=== PATIENT | male | born 1950 | race Caucasian/White ===

== ENCOUNTER 2018-04-08 05:46 | Inpatient (IN) | payer MEDICARE ==
[~2018-04-08] VITALS: Ht 177.8 cm; Wt 93.6 kg
[~2018-04-08 05:46] MED LIST: CETI10TA24 PO; CIPR500T3 PO; FINA5TAB4 PO; GLUC1CAP18 PO; MAGN400T7 PO; TAMS0.4C2 PO; TURM500C4 PO
[2018-04-08] MEDS ORDERED: EPINEPHRINE 1 MG/ML, 1ML ONE (06:56)
[2018-04-08] MEDS ORDERED: INDIGO CARMINE 0.8%, 5ML ONE (06:56)
[2018-04-08] MEDS ORDERED: BUPIVACAINE/PF 0.25% ONE (06:56)
[2018-04-08] MEDS ORDERED: THROMBIN 5,000 UNIT VIAL TP ONE (06:56)
[2018-04-08] MEDS: LACTATED RINGERS 1,000 ML IV SCH ×2 (07:05→14:29)
[2018-04-08] MEDS ORDERED: GABAPENTIN 300 MG CAPSULE ONE (07:06)
[2018-04-08] MEDS ORDERED: ACETAMINOPHEN 500 MG TABLET ONE (07:06)
[2018-04-08] MEDS ORDERED: FENTANYL PF 250 MCG/5ML ONE (07:07)
[2018-04-08] MEDS ORDERED: MIDAZOLAM 1 MG/ML, 2ML ONE (07:07)
[2018-04-08] MEDS ORDERED: LIDOCAINE-MPF 2% ,5ML ONE (07:26)
[2018-04-08] MEDS ORDERED: ROCURONIUM 10 MG/ML,10ML ONE (07:26)
[2018-04-08] MEDS ORDERED: METOPROLOL 1 MG/ML, 5ML ONE (07:26)
[2018-04-08] MEDS ORDERED: ONDANSETRON 2MG/ML, 2ML ONE (07:26)
[2018-04-08] MEDS ORDERED: PHENYLEPHRINE 10 MG/ML ONE (07:26)
[2018-04-08] MEDS ORDERED: CEFAZOLIN 1,000 MG ONE (07:26)
[2018-04-08] MEDS ORDERED: NEOSTIGMINE 1 MG/ML, 10ML ONE (07:26)
[2018-04-08] MEDS ORDERED: GLYCOPYRROLATE 0.2MG/1ML, 5ML ONE (07:26)
[2018-04-08] MEDS ORDERED: DEXAMETHASONE 4 MG/ML, 1ML ONE (07:26)
[2018-04-08] MEDS ORDERED: PROPOFOL 10 MG/ML, 20ML ONE (07:26)
[2018-04-08] MEDS ORDERED: LORazepam 2 MG/ML, 1ML IVPush PRN (07:30)
[2018-04-08] MEDS ORDERED: ALBUTEROL SULFATE 2.5 MG/3 ML NPPB PRN (07:30)
[2018-04-08] MEDS ORDERED: ACETAMINOPHEN 500 MG TABLET PO ONE (07:30)
[2018-04-08] MEDS ORDERED: hydrALAzine 20 MG/ML, 1ML IV PRN (07:30)
[2018-04-08] MEDS ORDERED: FENTANYL PF 100 MCG/2ML IV PRN (07:30)
[2018-04-08] MEDS ORDERED: HYDROmorphone 1 MG/ML, 1ML IV PRN ×2 (07:30→18:00)
[2018-04-08] MEDS ORDERED: OPIUM/BELLADONNA SUPP.RECT 16.2-30 MG PR PRN (07:30)
[2018-04-08] MEDS ORDERED: METOCLOPRAMIDE 5 MG/ML, 2ML IV PRN (07:30)
[2018-04-08] MEDS ORDERED: LABETALOL 5MG/ML, 20ML IV PRN (07:30)
[2018-04-08] MEDS ORDERED: OXYcodone 5 MG/5 ML ORAL.SOL UDC PO PRN ×3 (07:30→18:00)
[2018-04-08] MEDS ORDERED: MORPHINE SULFATE 4 MG/ML, 1ML IVPush PRN (07:30)
[2018-04-08] MEDS ORDERED: MEPERIDINE/PF 25MG/0.5ML IVPush PRN (07:30)
[2018-04-08] MEDS ORDERED: GABAPENTIN 300 MG CAPSULE PO ONE (07:30)
[2018-04-08] MEDS ORDERED: HYDROmorphone 2 MG/ML, 1ML IVPush PRN (07:30)
[2018-04-08] MEDS ORDERED: POLYETHYLENE GLYCOL 17 GM PACKET PO SCH (09:00)
[2018-04-08] MEDS ORDERED: OPIUM/BELLADONNA SUPP.RECT 16.2-30 MG ONE (12:29)
[2018-04-08] MEDS ORDERED: OXYcodone 5 MG/5 ML ORAL.SOL UDC ONE (12:48)
[2018-04-08] MEDS: ACETAMINOPHEN 325 MG TABLET PO SCH ×3 (13:30→21:38)
[2018-04-08] MEDS: KETOROLAC 30 MG/1 ML IV SCH ×3 (13:30→21:38)
[2018-04-08 14:23] VITALS: BP 120/75
[2018-04-08] MEDS: SODIUM CHLORIDE 0.9% 1,000 ML IV SCH ×3 (15:30→23:55)
[2018-04-08] MEDS: POLYETHYLENE GLYCOL 17 GM PACKET PO SCH (16:34)
[2018-04-08] MEDS: HEPARIN 5,000 UNITS/ML, 1ML SQ SCH ×2 (16:35→23:56)
[2018-04-08 18:50] VITALS: BP 100/67
[2018-04-08] MEDS: OXYcodone IR 5MG TABLET PO PRN (19:16)
[2018-04-09] VITALS: BP 102/66
[2018-04-09] MEDS: KETOROLAC 30 MG/1 ML IV SCH ×4 (03:12→20:45)
[2018-04-09] MEDS: ACETAMINOPHEN 325 MG TABLET PO SCH ×4 (03:12→20:44)
[2018-04-09 05:30] LABS: ANION GAP 9 mmol/L (5-15); CALCIUM 8.8 mg/dL (8.5-10.1); CHLORIDE 108 mmol/L (98-107); CREATININE 1.25 mg/dL (0.7-1.3)
[2018-04-09] MEDS: OXYcodone IR 5MG TABLET PO PRN ×5 (06:47→20:44)
[2018-04-09 06:54] VITALS: BP 113/70
[2018-04-09] MEDS: SODIUM CHLORIDE 0.9% 1,000 ML IV SCH ×3 (08:30→23:38)
[2018-04-09] MEDS: POLYETHYLENE GLYCOL 17 GM PACKET PO SCH (08:30)
[2018-04-09] MEDS: HEPARIN 5,000 UNITS/ML, 1ML SQ SCH ×3 (08:30→23:38)
[2018-04-09 13:35] VITALS: BP 113/60
[2018-04-09 19:05] VITALS: BP 123/67
[2018-04-10] MEDS: OXYcodone IR 5MG TABLET PO PRN ×3 (00:40→11:49)
[2018-04-10] MEDS: KETOROLAC 30 MG/1 ML IV SCH (03:00)
[2018-04-10] MEDS: ACETAMINOPHEN 325 MG TABLET PO SCH ×2 (03:40→08:25)
[2018-04-10 05:25] LABS: ANION GAP 5 mmol/L (5-15); CALCIUM 8.1 mg/dL (8.5-10.1); CHLORIDE 111 mmol/L (98-107)
[2018-04-10 05:27] LABS: CREATININE 1.35 mg/dL (0.7-1.3)
[2018-04-10 06:11] VITALS: BP 133/69
[2018-04-10] MEDS: SODIUM CHLORIDE 0.9% 1,000 ML IV SCH (07:30)
[2018-04-10] MEDS: POLYETHYLENE GLYCOL 17 GM PACKET PO SCH (08:25)
[2018-04-10] MEDS: HEPARIN 5,000 UNITS/ML, 1ML SQ SCH (08:26)
[2018-04-10 12:45] VITALS: BP 160/83
[2018-04-10] MEDS ORDERED: DOCU-131 PO (14:35)
[2018-04-10] MEDS ORDERED: OXYC5TAB3 PO (14:35)
[2018-04-10] MEDS ORDERED: POLY17PO5 PO (14:36)
== END 2018-04-10 15:00 | disposition home or self-care (01) | DRG 717 ==
LOC: OUT 05:46 → ORIP 07:24 → 4NOR 13:18 → DCLOUNGE 04-10 14:50
PROVIDERS: ADMIT Student in an Organized Health Care Education/Training Program; ATTEND Student in an Organized Health Care Education/Training Program
PROC: 8E0W4CZ Robotic Assisted Procedure of Trunk Region, Percutaneous Endoscopic Approach (ICD-10-PCS; 2018-04-08)
PROC: 0TCB4ZZ Extirpation of Matter from Bladder, Percutaneous Endoscopic Approach (ICD-10-PCS; principal; 2018-04-08 07:30)
PROC: 0VB04ZZ Excision of Prostate, Percutaneous Endoscopic Approach (ICD-10-PCS; 2018-04-08 07:30)
DX: D29.1 Benign neoplasm of prostate (principal); N13.8 Other obstructive and reflux uropathy; N21.0 Calculus in bladder; F32.9 Major depressive disorder, single episode, unspecified; F41.9 Anxiety disorder, unspecified; M19.90 Unspecified osteoarthritis, unspecified site; R33.8 Other retention of urine; J45.909 Unspecified asthma, uncomplicated; Z88.0 Allergy status to penicillin; Z91.010 Allergy to peanuts; Z91.018 Allergy to other foods
CPT/HCPCS: 36415; 80048; 82360; 85018; 86850; 86900; 88300; 88307; 88309; G0378; J0171; J0690; J1100; J1644; J1885; J2250; J2405; J2704; J2710; J3010; J3490; C1760; C1769; J2370; J7030; J7120